=== PATIENT | male | born 1970 | race Caucasian/White ===

== ENCOUNTER 2023-05-15 12:37 | Inpatient (IN) | payer SELFPAY ==
[~2023-05-15] VITALS: Ht 182.9 cm; Wt 113.4 kg
[2023-05-15] MEDS ORDERED: HYDRALAZINE 20MG/ML VIAL IV ONE ×2 (13:00→21:15)
[2023-05-15 14:47] LABS: BASOPHILS % 0.5 % (0.0-2.0); EOSINOPHILS % 0.5 % (0.0-5.0); HEMATOCRIT. 45.8 % (42.0-52.0); HEMOGLOBIN. 15.8 g/dL (14.0-18.0); LYMPHOCYTES % 14.8 % (20.0-50.0); MEAN CORPUSCULAR HEMOGLOBIN 30.8 pg (28.0-32.0); MEAN CORPUSCULAR HGB CONC 34.5 g/dL (31.0-37.0); MEAN CORPUSCULAR VOLUME 89.2 fL (80.0-94.0); MEAN PLATELET VOLUME 8.8 fl (7.4-10.4); MONOCYTES % 6.6 % (2.0-8.0); NEUTROPHILS % 77.6 % (40.0-76.0); PLATELET 240 x1000/uL (130-400); RED BLOOD CELL COUNT 5.14 mill/uL (4.7-6.1); RED CELL DISTRIBUTION WIDTH 14.1 % (11.6-14.6); WHITE BLOOD COUNT 10.5 x1000/uL (4.5-11.0)
[2023-05-15 14:59] LABS: PROTHROMBIN TIME 10.8 sec (9.6-11.0)
[2023-05-15] MEDS: LABETALOL 5MG/ML SYR 20 MG/4 ML SYRINGE IV PRN ×2 (15:49→17:30)
[2023-05-15 17:35] LABS: TROPONIN I HIGH SENSITIVITY 62 ng/L (3.0-53)
[2023-05-15 18:44] LABS: CARBON DIOXIDE 27 mEq/L (21-32); CHLORIDE 101 mEq/L (98-107); POTASSIUM 3.4 mEq/L (3.5-5.1); SODIUM 138 mEq/L (136-145)
[2023-05-15 18:45] LABS: CALCIUM 9.7 mg/dL (8.7-10.4); GLUCOSE 102 mg/dL (70-105); UREA NITROGEN BLOOD 10 mg/dL (9-23)
[2023-05-15 18:46] LABS: ALANINE AMINOTRANSFERASE 34 IU/L (10-49); ALBUMIN 4.2 g/dL (3.2-4.8); ASPARTATE AMINOTRANSFERASE 25 IU/L (<34); BILIRUBIN TOTAL 1.2 mg/dL (0.1-1.0)
[2023-05-15 18:48] LABS: ETHANOL BLOOD < 10 mg/dL (<10)
[2023-05-15 18:49] LABS: TROPONIN I HIGH SENSITIVITY 64 ng/L (3.0-53)
[2023-05-15 23:00] VITALS: BP 168/93; PULSE 84; RESP 17; TEMP 98.7
[2023-05-16] MEDS ORDERED: CLONIDINE 0.1MG TABLET PO PRN (00:15)
[2023-05-16] MEDS ORDERED: HYDROCODONE/ACETAMINOPHEN 5/325MG TABLET PO PRN (00:15)
[2023-05-16] MEDS ORDERED: NALOXONE HCL 0.4MG/ML VIAL IV PRN (00:45)
[2023-05-16] MEDS: ACETAMINOPHEN 325MG TABLET PO PRN ×3 (01:04→21:42)
[2023-05-16 04:00] VITALS: BP 166/81; PULSE 71; RESP 18; TEMP 97.6
[2023-05-16 07:49] LABS: BASOPHILS % 0.6 % (0.0-2.0); EOSINOPHILS % 1.4 % (0.0-5.0); HEMATOCRIT. 45.9 % (42.0-52.0); HEMOGLOBIN. 15.6 g/dL (14.0-18.0); LYMPHOCYTES % 17.7 % (20.0-50.0); MEAN CORPUSCULAR HEMOGLOBIN 29.9 pg (28.0-32.0); MEAN CORPUSCULAR HGB CONC 34.1 g/dL (31.0-37.0); MEAN CORPUSCULAR VOLUME 87.8 fL (80.0-94.0); MEAN PLATELET VOLUME 8.8 fl (7.4-10.4); MONOCYTES % 9.5 % (2.0-8.0); NEUTROPHILS % 70.8 % (40.0-76.0); PLATELET 246 x1000/uL (130-400); RED BLOOD CELL COUNT 5.22 mill/uL (4.7-6.1); RED CELL DISTRIBUTION WIDTH 14.4 % (11.6-14.6); WHITE BLOOD COUNT 9.8 x1000/uL (4.5-11.0)
[2023-05-16 08:00] VITALS: BP 156/88; PULSE 75; RESP 18; TEMP 97.8
[2023-05-16 08:09] LABS: CHOLESTEROL 119 mg/dL (<200); HDL CHOLESTEROL 26 mg/dL (>55); LDL CHOLESTEROL 105 mg/dL (5-100); THYROID STIMULATING HORMONE 3.11 uIU/mL (0.55-4.78); TRIGLYCERIDE 101 mg/dL (0-150)
[2023-05-16 12:00] VITALS: BP 177/98; PULSE 83; RESP 18; TEMP 98.1
[2023-05-16 16:00] VITALS: BP 188/98; PULSE 74; RESP 18; TEMP 97.4
[2023-05-16 16:13] LABS: CLARITY URINE CLEAR (CLEAR); COLOR URINE YELLOW (YELLOW); GLUCOSE URINE NEGATIVE (NEGATIVE); KETONES URINE NEGATIVE (NEGATIVE); LEUKOCYTE ESTERASE URINE NEGATIVE (NEGATIVE); NITRITE URINE NEGATIVE (NEGATIVE); OCCULT BLOOD URINE NEGATIVE (NEGATIVE); PH URINE 5.5 (4.5-8.0); PROTEIN URINE NEGATIVE (NEGATIVE); SPECIFIC GRAVITY URINE 1.015 (1.005-1.030); UROBILINOGEN URINE 0.2 E.U./dL (0.2-1.0)
[2023-05-16 17:20] LABS: *AMPHETAMINES SCREEN URINE NEGATIVE (NEGATIVE); *BARBITURATES SCREEN URINE NEGATIVE (NEGATIVE); *BENZODIAZEPINES SCREEN URINE NEGATIVE (NEGATIVE); *COCAINE SCREEN URINE NEGATIVE (NEGATIVE); CANNABINOID URINE SCREEN NEGATIVE (NEGATIVE); ECSTASY MDMA SCREEN URINE NEGATIVE (NEGATIVE); METHADONE URINE SCREEN Neg (NEGATIVE); OPIATES URINE SCREEN NEGATIVE (NEGATIVE); PHENCYCLIDINE URINE SCREEN NEGATIVE (NEGATIVE)
[2023-05-16 20:00] VITALS: BP 169/84; PULSE 84; RESP 18; TEMP 98.8
[2023-05-16] MEDS ORDERED: ATORVASTATIN CALCIUM 20MG TABLET PO SCH (21:00)
[2023-05-16] MEDS: CLONIDINE 0.1MG TABLET PO PRN (21:42)
[2023-05-17] VITALS: BP 147/74; PULSE 72; RESP 18; TEMP 98.1
[2023-05-17 04:00] VITALS: BP 170/112; PULSE 78; RESP 18; TEMP 96.4
[2023-05-17] MEDS: CLONIDINE 0.1MG TABLET PO PRN ×3 (04:20→13:11)
[2023-05-17 08:00] VITALS: BP 166/95; PULSE 69; RESP 18; TEMP 98.7
[2023-05-17] MEDS ORDERED: AMLODIPINE 10MG TABLET PO SCH (13:00)
[2023-05-17] MEDS ORDERED: CLOP-31 MT (15:15)
[2023-05-17] MEDS ORDERED: ATOR20TA PO (15:15)
[2023-05-17] MEDS ORDERED: AMLO10TA80 PO (15:15)
[2023-05-17] MEDS ORDERED: ASPIRIN 81MG TABLET PO SCH (15:15)
[2023-05-17] MEDS ORDERED: LOSA100T33 MT (15:15)
[2023-05-17] MEDS ORDERED: ASPI-1406 MT (15:15)
[2023-05-17 15:55] VITALS: BP 161/99; PULSE 77; TEMP 99.1; O2SAT 100
[2023-05-17 16:00] VITALS: BP 161/99; PULSE 77; RESP 18; TEMP 99.1
[2023-05-17] MEDS ORDERED: ENOXAPARIN 30MG/0.3ML SYR SUBCUT SCH (18:00)
== END 2023-05-17 16:25 | disposition home or self-care (01) | DRG 45 ==
LOC: ER 12:37 → MICUSO 20:33 → EDBEDREQTM 20:42 → EDBEDREQ 20:42 → 6EST 23:15
PROVIDERS: ADMIT Internal Medicine; ATTEND Internal Medicine
DX: I63.532 Cerebral infarction due to unspecified occlusion or stenosis of left posterior cerebral artery (principal); E66.01 Morbid (severe) obesity due to excess calories; I16.1 Hypertensive emergency; I10 Essential (primary) hypertension; E87.6 Hypokalemia; Z68.33 Body mass index [BMI] 33.0-33.9, adult
CPT/HCPCS: 36415; 70496; 70498; 70551; 71045; 80053; 80061; 80305; 80320; 81003; 82962; 83735; 84443; 84484; 85025; 93005; 97162; 97165; 97530; 99285; J0360; J3490; G0480